=== PATIENT | female | born 1970 | race Caucasian/White ===

== ENCOUNTER 2021-11-10 09:39 | Emergency (ER) | payer SELFPAY ==
[~2021-11-10] VITALS: Ht 165.1 cm; Wt 104.3 kg
[~2021-11-10 09:39] MED LIST: AMOX500C2 PO; CRS350T PO; CYCL10TA25 PO; CYCL10TA9 PO; DIAZ10TA PO; ESTR1TAB27 PO; ESTRODIL; ETD400T PO; HYDR-1231 PO; HYDR-34 PO; HYDR-3454 PO; HYDR-3714 PO; HYDR1TAB PO; METH4TAB PO; NAPR-243 PO; PRM25T PO; TRAM50TA2 PO; TRM50T PO
[2021-11-10] MEDS ORDERED: oxyCODONE/APAP 5/325MG (PERCOCET 5) TABLET PO ONE (11:15)
[2021-11-10] MEDS ORDERED: ACYCLOVIR 400 MG TABLET (ZOVIRAX) PO STA (11:47)
[2021-11-10] MEDS ORDERED: OXYC1TAB87 PO (12:02)
[2021-11-10] MEDS ORDERED: ACYC-112 PO (12:02)
--- NOTE | 2021-11-10 12:04 | ED General ---
General Chief Complaint: Head/Cervical Problems Stated Complaint: HEADACHE/FEVER/RASH Nursing Triage Note: pt ambulatory to room. pt states she has had a left sided headache for more than a week and a rash on her left side of face and scalp for approx 1 week as well. pt reports going to the clinic on friday and she was prescribed medicine for headache and antibiotics for skin rash. pt reports neither have helped. pt mentions she was doing research online and is fearful she has monkeypox so she wanted to get checked out Source of Information: Patient Exam Limitations: No Limitations History of Present Illness Date Seen by Provider: Nov 10, 2021 Time Seen by Provider: 09:44 Initial Comments This 51-year-old woman presents to the emergency room with complaints of left- sided headache and rash involving the left side of her face, especially above the left eyebrow. She noticed the pain about a week ago and developed a rash on Friday or Friday. She presented to the [facility] walk-in clinic on November 06 and it was prescribed Augmentin and nabumetone (NSAID) for treatment of suspected cellulitis. This has not helped her pain or rash. The rash is now in a scabbed stage of development. She has scleral and conjunctival erythema and irritation of the left eye and her vision is blurry. 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 Her primary care health tech is Dr. Howell in [place]. His office is not open today. Patient denies any other precipitating illnesses recently, diabetes, or other factors that would have triggered shingles. Her pain is rather intense and is sometimes pulsating or shooting. The nabumetone is not very effective in treating the pain. Allergies and Home Medications Allergies Coded Allergies: No Known Drug Allergies (Unverified , 08/30/09) Patient Home Medication List Home Medication List Reviewed: Yes Acyclovir (Acyclovir) 800 Mg Tablet, 800 MG PO 5XD Prescribed by: CLAYTON PRYOR on 11/10/21 1202 Amoxicillin (Amoxicillin) 500 Mg Capsule, 1 EACH PO TID Prescribed by: ALYSIA MARTIN on 05/16/13 1123 Cyclobenzaprine HCl (Cyclobenzaprine HCl) 10 Mg Tablet, 10 MG PO Q8H PRN for SPASMS Prescribed by: AZEEM KING on 09/22/15 0221 Diazepam (Valium 10 Mg Tab) 10 Mg Tablet, 1 EACH PO PRN, (Reported) Entered as Reported by: RICARDO GROVER on 02/08/13 1042 Estradiol (Estrace) 1 Mg Tablet, 1 MG PO DAILY, (Reported) Entered as Reported by: TORIN PAREDES on 07/10/10 1515 Hydrocodone Bit/Acetaminophen (Vicodin 5-300 Mg Tablet) 1 Each Tablet, 1 EACH PO, (Reported) Entered as Reported by: RICARDO GROVER on 02/08/13 1044 Hydrocodone Bit/Acetaminophen (Hydrocodone-Apap 5-325 Tablet) 1 Tab Tablet, 1 TAB PO Q6H PRN for PAIN Prescribed by: ALYSIA MARTIN on 05/16/13 1123 Hydrocodone Bit/Acetaminophen (Hydrocodone-Apap 5-325 Tab) 1 Tab Tablet, 1 TAB PO Q4H PRN for PAIN Prescribed by: JENNA WHITTEN on 12/22/13 2148 Hydrocodone Bit/Acetaminophen (Lortab 7.5 Mg Tablet) 1 Each Tablet, 1 EACH PO Q6H Prescribed by: AZEEM KING on 09/22/15 0221 Oxycodone HCl/Acetaminophen (Percocet 5-325 mg Tablet) 1 Each Tablet, 1 TAB PO Q4H Prescribed by: CLAYTON PRYOR on 11/10/21 1203 Review of Systems Review of Systems Constitutional: no symptoms reported EENTM: see HPI Respiratory: no symptoms reported Cardiovascular: no symptoms reported Gastrointestinal: no symptoms reported Genitourinary: no symptoms reported : No Musculoskeletal: no symptoms reported Skin: see HPI Psychiatric/Neurological: See HPI Hematologic/Lymphatic: No Symptoms Reported Immunological/Allergic: no symptoms reported Past Btrpaar-Jvoxlv-Naofoa Hx Patient Social History Tobacco Use?: No Use of E-Cig and/or Vaping dev: No Substance use?: No Alcohol Use?: No Immunizations Up To Date Tetanus Booster (TDap): More than 5yrs Influenza Vaccine Up-to-Date: No; Not Current Past Medical History Surgeries: Yes Hysterectomy Respiratory: No Cardiac: No Neurological: No : No Reproductive Disorders: No RN INTERNATIONAL History: Hysterectomy Genitourinary: No Gastrointestinal: No Musculoskeletal: Yes Scoliosis, Chronic Back Pain Endocrine: No HEENT: Yes ("Legally blind" in the right eye) Cancer: No Psychosocial: No Integumentary: No Physical Exam Vital Signs Vital Signs - First Documented 11/10/21 09:55 Temp 37.0 Pulse 73 Resp 16 B/P (MAP) 136/93 (107) Pulse Ox 96 Capillary Refill : Height, Weight, BMI Height: 5'7" Weight: 155lbs. oz. [id number]; 38.00 BMI Method:Stated General Appearance: No Apparent Distress, WD/WN HEENT: PERRL/EOMI, TMs Normal, Pharynx Normal, Other (Photosensitivity of the left eye. Scabbed rash affecting the left side of the face, primarily above the left brow, and minimally affecting the scalp line and midface. It does not cross to the right face.) Neck: Normal Inspection Respiratory: Normal Breath Sounds, No Accessory Muscle Use Cardiovascular: Regular Rate, Rhythm, No Edema Extremity: Normal Inspection Neurologic/Psychiatric: Alert, Oriented x3, No Motor/Sensory Deficits, Normal Mood/Affect, Abnormal coremaker helper II-XII (Chronic visual deficit in the right eye, blurred vision in the left eye) Skin: Normal Color, Warm/Dry Progress/Results/Core Measures Suspected Sepsis SIRS Temperature: Pulse: 73 Respiratory Rate: 16 Blood Pressure 136 /93 Mean: 107 Results/Orders Lab Results Laboratory Tests Test 11/10/21 10:04 11/10/21 11:23 Range/Units Influenza Type A (RT-PCR) Not Detected Not Detecte Influenza Type B (RT-PCR) Not Detected Not Detecte SARS-CoV-2 RNA (RT-PCR) Not Detected Not Detecte Glucometer 114 H 70-110 MG/DL My Orders Orders - CLAYTON JERRY MD Covid 19 Inhouse Test (11/10/21 09:44) Influenza A And B By Pcr (11/10/21 09:44) Oxycodone/Apap 5/325mg Tablet (Percocet (11/10/21 11:15) Accucheck Stat ONCE (11/10/21 11:11) Acyclovir Capsule/Tablet (Zovirax Caps (11/10/21 11:47) Medications Given in ED Current Medications Medications Dose Ordered Sig/Lillian Route Start Time Stop Time Status Last Admin Dose Admin Oxycodone/ Acetaminophen 1 tab ONCE ONCE PO 11/10/21 11:15 11/10/21 11:16 DC 11/10/21 11:25 1 TAB Vital Signs/I&O 11/10/21 09:55 Temp 37.0 Pulse 73 Resp 16 B/P (MAP) 136/93 (107) Pulse Ox 96 Capillary Refill : Blood Pressure Mean: 107 Point of Care Testing Finger Stick Blood Glucose: 114 Blood Glucose Action Taken: RN notified Progress Note : Progress Note Patient was seen and examined. Based on history and current stage of the disease process, this appears to be a classic case of shingles with ophthalmologic involvement. I discussed the case with Dr. Rg who agrees this is suspicious for shingles, and he requested to see her in the clinic promptly. Patient is being discharged directly to his clinic for further evaluation and care. She received a dose of acyclovir 800 mg orally in the emergency room as well as a dose of Percocet for pain control. Her is driving her to see Dr. Rg immediately after discharge. Departure Impression Primary Impression: Shingles Qualified Codes: B02.30 - Zoster ocular disease, unspecified Additional Impression: Zoster ophthalmicus Disposition: 01 HOME, SELF-CARE Condition: Improved Departure-Patient Inst. Referrals: [facility] (PCP/Family) Primary Care Physician ISABEL COOPER OD Patient Instructions: Shingles Add. Discharge Instructions: Go directly to [facility] where Dr. Rg will meet you and perform an eye exam and make appropriate recommendations. Complete your acyclovir antiviral medication as prescribed. Use Percocet as prescribed for pain. Please be advised this is an opioid/narcotic pain medication which may cause drowsiness, dulled thinking, and constipation. Use with caution. You may wish to use a stool softener such as Colace to prevent constipation while you are on Percocet. Do not drive or operate machinery while using it. Call with questions or concerns and return to the emergency room if you have other worsening problems. You may continue the nabumetone anti-inflammatory pain medication as well if approved by Dr. Rg. All discharge instructions reviewed with patient and/or family. Voiced understanding. Scripts Acyclovir (Acyclovir) 800 Mg Tablet 800 MG PO 5XD, #35 TAB Prov: CLAYTON JERRY MD 11/10/21 Oxycodone HCl/Acetaminophen (Percocet 5-325 mg Tablet) 1 Each Tablet 1 TAB PO Q4H for PAIN-MODERATE MDD 6 TABS, #15 TAB Prov: CLAYTON JERRY MD 11/10/21 CLAYTON JERRY MD Nov 10, 2021 12:04
[2021-11-10 12:23] VITALS: BP 153/103
== END 2021-11-10 12:30 | disposition home or self-care (01) ==
LOC: EDUNIT# 09:39 → ER 09:44
DX: B02.30 Zoster ocular disease, unspecified (principal); H54.8 Legal blindness, as defined in USA; Z28.310 Unvaccinated for COVID-19; Z20.822 Contact with and (suspected) exposure to COVID-19
CPT/HCPCS: 82947; 87636